=== PATIENT | female | born 1995 | race African-American/Black ===

== ENCOUNTER 2017-09-27 14:09 | Emergency (ER) | payer OTHER ==
[~2017-09-27] VITALS: Ht 165.1 cm; Wt 72.7 kg
[2017-09-27 14:10] VITALS: BP 134/67
== END 2017-09-27 15:07 | disposition home or self-care (01) ==
LOC: M ED 14:09
DX: S61.213A Laceration without foreign body of left middle finger without damage to nail, initial encounter (principal); S20.219A Contusion of unspecified front wall of thorax, initial encounter; V49.59XA Passenger injured in collision with other motor vehicles in traffic accident, initial encounter; Y92.410 Unspecified street and highway as the place of occurrence of the external cause; Y93.89 Activity, other specified; Y99.8 Other external cause status

== ENCOUNTER 2017-11-05 15:41 | Emergency (ER) | payer OTHER | END 2017-11-05 19:51 | disposition home or self-care (01) | LOC: M ED 15:41 | DX: J06.9 Acute upper respiratory infection, unspecified (principal) | CPT/HCPCS: 71046 ==

== ENCOUNTER → 2018-01-14 | Outpatient (CLI) | payer OTHER | LOC: M SMT 10:10 | DX: R06.02 Shortness of breath (principal) | CPT/HCPCS: 71046 ==